=== PATIENT | female | born 1945 | race Caucasian/White ===

== ENCOUNTER → 2017-01-30 | Outpatient (CLI) | payer MEDICARE, OTHER ==
[~2017-01-30] MED LIST: CELE200C; MULT1CAP20; TRAM-40
--- NOTE | 2017-01-30 16:18 | RADRPT ---
PROCEDURE: US Lower extremity Venous. CLINICAL INDICATION: Left leg edema TECHNIQUE: Multiple sonographic images of the left lower extremity deep venous system was obtained utilizing grayscale, color-flow, compressive sonography and doppler imaging with augmentation. The images were reviewed on a PACS workstation. COMPARISON: None. FINDINGS: There is normal compressibility and flow within the left common femoral, femoral, posterior tibial, peroneal and popliteal veins. RPTAT: AA IMPRESSION: No sonographic evidence for deep venous thrombosis. .Harshal Franklin MD, MD Date Time Electronically viewed and signed by .Harshal Franklin MD, on 01/30/2017 16:18 .S/
== END | disposition home or self-care (01) ==
LOC: VAS 15:33
PROVIDERS: ATTEND Internal Medicine Rheumatology
DX: R60.0 Localized edema (principal)
CPT/HCPCS: 93971